=== PATIENT | female | born 1940 ===

== ENCOUNTER → 2018-08-20 21:33 | Outpatient (REF) | payer MEDICARE, OTHER, SELFPAY ==
[2018-08-20 22:40] LABS: Erythrocyte Sedimentation Rate 9 MM/HR (0-20)
[2018-08-20 23:48] LABS: C-Reactive Protein Quant < 0.5 mg/dL (<1.0)
[2018-08-22 19:56] LABS: ANA Screen, IFA Negative (Negative)
[2018-08-23 13:02] LABS: Angiotensin Converting Enzyme 52 U/L (9-67)
== END ==
LOC: LAB 21:33
PROVIDERS: Visit Provider Internal Medicine Medical Oncology
DX: K75.3 Granulomatous hepatitis, not elsewhere classified (principal)
CPT/HCPCS: 36415; 82164; 85651; 86038; 86140; 86480